=== PATIENT | female | born 1995 | race Caucasian/White ===

== ENCOUNTER 2017-03-21 06:05 | Inpatient (IN) ==
[2017-03-21] MEDS ORDERED: CEFAZOLIN PREMIX (MC ONLY) 2 GM/50 ML BAG IV ONE (06:10)
[2017-03-21] MEDS ORDERED: FAMOTIDINE PB 20 MG/50 ML BAG IV ONE (06:10)
[2017-03-21] MEDS ORDERED: CEFAZOLIN 1 G INJECTION IVP ONE (06:10)
[2017-03-21] MEDS ORDERED: CITRIC ACID/SODIUM CITRATE 30ml PO ONE (06:10)
[2017-03-21] MEDS: LR 1,000 ML IV SCH ×2 (06:38→07:38)
[2017-03-21 06:52] VITALS: BMI 39.3
[2017-03-21] MEDS ORDERED: NOZIN NASAL SWAB NAS ONE ×2 (07:00→10:00)
[2017-03-21] MEDS ORDERED: FentaNYL 100 MCG/2 ML INJECTION ONE (07:08)
[2017-03-21] MEDS ORDERED: MORPHINE SULFATE PF 5mg/10ml INJ (Duramorph) ONE (07:08)
[2017-03-21] MEDS ORDERED: DiphenhydrAMINE 50 MG/ML INJECTION IVP PRN (07:24)
[2017-03-21] MEDS ORDERED: NALOXONE 2 MG/2 ML INJECTION PFS IVP PRN (07:24)
--- NOTE | 2017-03-21 07:24 | Anesthesia Preoperative Report ---
Anesthesia Preoperative Record - Date and Time Date: 03/21/17 Preoperative Diagnosis: repeat c section Proposed Procedure: repeat NPO Since Date: 03/21/17 NPO Since Time: 00:00 Allergies/Adverse Reactions: Allergies Allergy/AdvReac Type Severity Reaction Status Date / Time NKDA Allergy Unknown Uncoded 02/13/16 14:39 - Vital Signs Vital Signs: Temperature 97.8 F 03/21/17 06:44 Pulse Rate 106 H 03/21/17 06:44 Respiratory Rate 16 03/21/17 06:44 Blood Pressure 126/80 03/21/17 06:44 Pulse Oximetry 96 03/21/17 06:44 Oxygen Delivery Method Room Air Height and Weight: Height 5 ft 4 in Weight 104 kg Body Mass Index 39.3 - Medications Inpatient Medications: Current Medications Lactated Ringer's (Lactated Ringers) 1,000 mls @ 150 mls/hr IV .Q6H40M [facility] Last Admin: 03/21/17 06:38 Dose: 150 mls/hr Isopropyl Alcohol (Nozin Nasal Swab) 1 each RIKI O ONE Stop: 03/21/17 10:01 Isopropyl Alcohol (Nozin Nasal Swab) 1 each RIKI 0600,1400,2200 [facility] Home Medications: Home Medications Medication Instructions Recorded Confirmed Type Ferrous Sulfate [Iron] 1 tab PO WB #0 tab 01/25/16 03/20/17 History Pnv95/Ferrous Fumarate/FA 1 tab PO DAILY #0 tab 01/25/16 03/20/17 History [ Tablet] Butalb/Acetaminophen/Caffeine 1 cap PO PRN #0 02/13/16 03/20/17 History [Fioricet 50-300-40 mg Capsule] Is Patient on Beta Laura?: No - Medical History Respiratory: DENIES: Asthma, Bronchitis, Chronic Obstructive Pulmonary Disease (COPD), Dyspnea, Orthopnea, Pulmonary Embolism, Pneumonia, Upper Respiratory Infection, Pulmonary Edema, Sleep Apnea, Tuberculosis, Other Cardiovascular: DENIES: Abnormal EKG, Angina, Arrhythmia, Congestive Heart Failure, Coronary Artery Disease, Heart Murmur, Hypertension, Hypotension, High Cholesterol, Myocardial Infarction, Rheumatic Fever, Valvular Heart Disease, Other Gastrointestional: Reports: Gastroesophageal Reflux Disease Neuro/Musculoskeletal: Denies: HX.MS.OSAR, Back Problems, Cerebrovascular Accident, Depression, Headaches, Loss of Consciousness, Muscle Weakness, Neuromuscular Disorder, Paralysis, Paresthesia, Syncope, Seizures, Other Renal/Endocrine: DENIES: Diabetes Mellitus Type 1, Diabetes Mellitus Type 2, Renal Failure, Dialysis, Thyroid Disease, Weight Loss, Weight Gain, Other Other History: Reports: Now Anesthesia Reactions: nausea and vomiting (with last ) - Surgical History HEENT Surgeries: Reports: Tonsillectomy (2009) Reproductive Surgery/Treatment: Reports: Section Anesthesia Reactions: Nausea and Vomiting Hx Family Anesthesia Reaction: No History of Motion Sickness: No - Social History Smoking Status: Never smoker Substance Use Type: does not use - Pertinent Findings Laboratory: CBC and BMP 03/21/17 06:34 EKG Rhythm: Normal Sinus Rhythm - Physical Exam Respiratory Exam: Present: lungs clear, bilateral breath sounds equal Cardiovascular Exam: Present: regular rate and rhythm, no murmur - Airway Assessment Mallampati Score: II TMD: 3 Fingerbreadths Neck Extension: fair Overall Assessment: may be difficult intubation - ASA ASA Score: 2 - Plan Anesthesia: Neuroaxial Regional/Trunk Block: Spinal - Discussion Discussion: Discussed risks/options/alternatives of anesthesia and questions answered. Patient consents. Nursing pain assessment noted. Present for Discussion: spouse, family member Attestation Statement: Prior to the delivery of any anesthetic medication, I examined the patient, developed the plan, obtained the patient's consent and discussed the risk and benefits of the procedure with the patient/guardian. - Additional Information Seen by Anesthesia: Yes
[2017-03-21] MEDS ORDERED: ONDANSETRON 4 MG/2 ML INJECTION ONE ×2 (07:55)
[2017-03-21] MEDS ORDERED: EPHEDRINE 50mg/ml INJECTION ONE (07:55)
[2017-03-21] MEDS ORDERED: OXYTOCIN DRIP 30 UNIT/500 ML ML IV SCH ×2 (08:15→08:59)
[2017-03-21] MEDS ORDERED: ACETAMINOPHEN 500 MG TABLET PO PRN (08:59)
[2017-03-21] MEDS ORDERED: SIMETHICONE 80 MG CHEWABLE TABLET PO PRN (08:59)
[2017-03-21] MEDS ORDERED: HYDROCORTISONE 2.5% CREAM 30gm RECTALLY PRN (08:59)
[2017-03-21] MEDS ORDERED: DiphenhydrAMINE 25 MG CAPSULE PO PRN (08:59)
[2017-03-21] MEDS ORDERED: SALINE FLUSH 10ml SYRINGE IVF PRN (08:59)
[2017-03-21] MEDS ORDERED: CALCIUM CARBONATE Chewable 500mg TABLET PO PRN (08:59)
[2017-03-21] MEDS: D5LR 1,000 ML IV SCH ×2 (09:03→19:29)
[2017-03-21] MEDS ORDERED: ONDANSETRON 4 MG/2 ML INJECTION IVP PRN (09:52)
[2017-03-21] MEDS: DOCUSATE CALCIUM 240 MG CAPSULE PO SCH (10:01)
[2017-03-21] MEDS: SIMETHICONE 80 MG CHEWABLE TABLET PO SCH ×4 (10:45→22:46)
[2017-03-21] MEDS ORDERED: DEXAMETHASONE 4 MG/ML INJECTION IVP ONE (11:39)
[2017-03-21] MEDS ORDERED: LR 500 ML IV SCH ×2 (11:40→12:15)
[2017-03-21] MEDS ORDERED: LR 1,000 ML IV SCH (12:15)
[2017-03-21] MEDS: HYDROMORPHONE 2 MG/ML INJECTION IVP ONE ×2 (12:20→13:13)
[2017-03-21] MEDS ORDERED: HYDROMORPHONE 2 MG/ML INJECTION IVP ONE (12:30)
--- NOTE | 2017-03-21 12:56 | Operative Note ---
DATE OF OPERATION 03/21/2017 PREOPERATIVE DIAGNOSIS 1. 21-year-old 2, para 1 at 39 weeks 1 day gestational age. 2. Previous . POSTOPERATIVE DIAGNOSIS 1. 21-year-old 2, para 1 at 39 weeks 1 day gestational age. 2. Previous . PROCEDURE Repeat low transverse section. SURGEON Maeve Mathews MD HARP REPAIRER Bob Mckeon, Commutator Inspector ANESTHESIA Spinal CONTACT LENS TECHNICIAN Gregor Phelan CRNA COMPLICATIONS None. EBL 700 mL FINDINGS Viable female infant, cephalic position, clear fluids, Apgars 9/9, weight 3472 grams, name "Serena". Nuchal cord x1. Normal-appearing uterus, tubes and ovaries. DESCRIPTION OF PROCEDURE The patient was taken to the operating room where anesthesia was obtained. She was placed in the dorsal supine position with a leftward tilt and a Hernandez catheter was placed. She was prepared and draped in the normal sterile fashion. A Pfannenstiel skin incision was made through her previous incision and carried down to the fascia. The fascia was incised in the midline and extended laterally with the Shea scissors. There was a small amount of thickening in this layer due to previous scarring. The fascia was elevated and the underlying rectus muscles were dissected off. The peritoneum was entered with a combination of blunt and sharp dissection. This was extended superiorly and inferiorly with good visualization of the bladder. The bladder blade was inserted. A bladder flap was created sharply with the Metzenbaum scissors and the bladder blade was reinserted. The lower uterine segment was incised in a transverse fashion layer by layer with a scalpel and bluntly extended. The infant's head was floating in the pelvis. It was delivered atraumatically. A nuchal cord x1 was reduced. The nose and mouth were suctioned. The cord was clamped and cut. The was taken to the warmer to the awaiting NRP. The placenta delivered spontaneously. The uterus was exteriorized and cleared of all clots and debris. The uterine incision was closed with running locked 0 Monocryl. Hemostasis was obtained on the serosal edges with the cautery. The uterus was returned to the abdomen. The gutters were cleared of all clots and debris. The peritoneum was closed with running 2-0 Vicryl. Hemostasis was obtained in the rectus muscles with the cautery. The fascia was closed with running 0 Vicryl. Hemostasis was obtained in the subcutaneous tissue with the cautery. The skin edges were closed with 4-0 Vicryl in a subcuticular manner. Steri-Strips were placed. Sponge, sharp and instrument counts were correct. The patient tolerated the procedure well and was taken to the recovery room in good condition. PEREZ
[2017-03-21] MEDS ORDERED: SCOPOLAMINE 1.5 MG PATCH TD ONE (14:23)
--- NOTE | 2017-03-21 17:40 | OB/GYN Progress Note ---
OB-PP Progress Note - Subjective Date: 03/21/17 Lochia: Minimal Pain: contolled Voiding: tomlinson still in place Nausea or Vomiting Present: Yes Subjective Comments: Given Zofran, IV bolus, decadron, and scopalamine patch. Still having nausea. - Objective Vital Signs: Last Vital Signs Temp 97.8 F 03/21/17 06:44 Pulse 106 H 03/21/17 06:44 Resp 16 03/21/17 06:44 BP 126/80 03/21/17 06:44 Pulse Ox 96 03/21/17 06:44 Urine Output: good General: alert and oriented Abdomen: soft, non-distended Laboratory: Laboratory Results - last 24 hr 03/21/17 03/21/17 03/21/17 06:34 06:34 14:58 WBC 13.0 H 15.7 H RBC 3.97 L 4.00 Hgb 9.8 L 10.1 L Hct 32.3 L 32.3 L MCV 81.4 80.8 MCH 24.7 L 25.3 L MCHC 30.3 L 31.3 RDW Std Deviation 44.0 43.2 Plt Count 300 299 MPV 8.9 L 8.8 L Immature Gran % (Auto) 0.4 Neut % (Auto) 70.1 H Lymph % (Auto) 22.5 L [place] % (Auto) 6.4 Eos % (Auto) 0.4 Baso % (Auto) 0.2 Neut # 9.1 H Lymph # 2.9 [place] # 0.8 Eos # 0.1 Baso # 0.0 Abs Immat Gran (auto) 0.05 H Blood Type O Positive Antibody Screen Negative - Assessment (1) S/P repeat low transverse Status: Acute - Plan Plan: routine care (Rec she decrease her PO intake until the nausea gets better. )
[2017-03-21] MEDS ORDERED: NOZIN NASAL SWAB NAS SCH (22:00)
[2017-03-22] MEDS: HYDROCODONE/APAP 5mg/325mg TABLET PO PRN ×4 (03:12→23:36)
[2017-03-22] MEDS: IBUPROFEN 800 MG TABLET PO PRN ×3 (03:12→23:36)
--- NOTE | 2017-03-22 08:03 | OB/GYN Progress Note ---
OB-PP Progress Note - General PPD1 Maternal Group B Strep: Negative Maternal blood type: O+ Maternal Rubella Status: Immune - Subjective Date: 03/22/17 Lochia: Minimal Pain: contolled Voiding: voiding Nausea or Vomiting Present: No (Much improved) - Objective Vital Signs: Last Vital Signs Temp 98.2 F 03/22/17 07:20 Pulse 85 03/22/17 07:20 Resp 18 03/22/17 07:20 BP 134/88 03/22/17 07:20 Pulse Ox 98 03/22/17 07:20 Urine Output: good General: alert and oriented Abdomen: fundus firm, non-tender, soft Incision: normal Extremities: non-tender Laboratory: Laboratory Results - last 24 hr 03/21/17 14:58 WBC 15.7 H RBC 4.00 Hgb 10.1 L Hct 32.3 L MCV 80.8 MCH 25.3 L MCHC 31.3 RDW Std Deviation 43.2 Plt Count 299 MPV 8.8 L - Assessment (1) S/P repeat low transverse Status: Acute (2) Chronic anemia Status: Acute - Plan Plan: routine care, iron
[2017-03-22] MEDS: NOZIN NASAL SWAB NAS SCH ×2 (08:40→15:58)
[2017-03-22] MEDS ORDERED: IRON POLYSACCHARIDE COMPLEX 150 MG CAPSULE PO SCH (09:00)
[2017-03-22] MEDS: DOCUSATE CALCIUM 240 MG CAPSULE PO SCH (09:16)
[2017-03-22] MEDS: SIMETHICONE 80 MG CHEWABLE TABLET PO SCH ×4 (09:16→22:33)
--- NOTE | 2017-03-22 13:07 | Anesthesia Postoperative Note ---
- Date and Time Date: 03/22/17 Time: 13:07 - Status Patient Participated in Evaluation: Patient Participated in Person Vital Signs: Temperature 98.4 F 03/22/17 11:56 Pulse Rate 84 03/22/17 11:56 Respiratory Rate 18 03/22/17 11:56 Blood Pressure 121/70 03/22/17 11:56 Pulse Oximetry 99 03/22/17 11:56 Oxygen Delivery Method Room Air Respiratory Function: Airway Patent Cardiovascular Function: Regular Pulse EKG Rhythm: Normal Sinus Rhythm Mental Status: Alert and Oriented Pain Intensity: 0 Hydration: Taking PO Fluids Complications During Recover: None Apparent - Follow-Up Instructions Instructions: Per Surgeon
[2017-03-22 23:54] VITALS: TEMP 98.3
[2017-03-23] MEDS: NOZIN NASAL SWAB NAS SCH (01:31)
[2017-03-23] MEDS: HYDROCODONE/APAP 5mg/325mg TABLET PO PRN (07:35)
[2017-03-23 07:43] VITALS: BP 139/88; PULSE 90; RESP 16; O2SAT 98
--- NOTE | 2017-03-23 08:17 | OB/GYN Progress Note ---
OB-PP Progress Note - General PPD2 - Subjective Date: 03/23/17 Lochia: Minimal Pain: contolled Voiding: voiding - Objective Vital Signs: Last Vital Signs Temp 98.3 F 03/23/17 07:00 Pulse 90 03/23/17 07:00 Resp 16 03/23/17 07:00 BP 139/88 03/23/17 07:00 Pulse Ox 98 03/23/17 07:00 Urine Output: good Abdomen: fundus firm, non-tender Incision: normal, intact Extremities: non-tender - Assessment (1) S/P repeat low transverse Status: Acute (2) Chronic anemia Status: Acute - Plan Plan: routine care, iron, discharge home, continue PNV
--- NOTE | 2017-03-23 08:20 | Discharge Instructions ---
Discharge Plan - Med Rec/Dispo Prescriptions: New Hydrocodone/APAP 5/325 [[place] 5/325] 1 - 2 tab PO Q4H PRN #40 tablet PRN Reason: Pain Ibuprofen [Motrin] 800 mg PO Q8H PRN #30 tablet PRN Reason: Pain Continue Pnv95/Ferrous Fumarate/FA [ Tablet] 1 tab PO DAILY #0 tab Ferrous Sulfate [Iron] 1 tab PO WB #0 tab Butalb/Acetaminophen/Caffeine [Fioricet 50-300-40 mg Capsule] 1 cap PO PRN # 0 Discharge Instructions/Outpatient Orders: Final Provider Discharge Instructions Time Frame: 03/23/17, Location: Determined By Patient - Disposition 01 Discharged Home, Self-Care
[2017-03-24] MEDS ORDERED: SCOPOLAMINE PATCH REMOVAL TD SCH (14:45)
== END 2017-03-23 10:30 | disposition home or self-care (01) | DRG 766 ==
LOC: MC 06:05
PROVIDERS: ADMIT Obstetrics & Gynecology; ATTEND Obstetrics & Gynecology